=== PATIENT | female | born 1935 | race Two or more races ===

== ENCOUNTER 2023-03-25 19:56 | Emergency (ER) | payer OTHER ==
[~2023-03-25] VITALS: Ht 154.9 cm; Wt 46.3 kg
[2023-03-25] MEDS ORDERED: LIPITOR20 MG PO (20:07)
[2023-03-25] MEDS ORDERED: VASOTEC20 M1 PO (20:07)
[2023-03-25] MEDS ORDERED: MOBIC7.5 MG PO (23:46)
[2023-03-25] MEDS ORDERED: HYDROCHLOROTH12.5 MG PO (23:46)
[2023-03-25] MEDS ORDERED: METOPROLOL SUCC25 MG PO (23:46)
[2023-03-25] MEDS ORDERED: LOSARTAN POTAS100 MG PO (23:46)
[2023-03-25] MEDS ORDERED: ZANAFLEX2 M1 PO (23:46)
== END 2023-03-25 23:56 | disposition home or self-care (01) ==
LOC: ER 19:57
DX: I10 Essential (primary) hypertension (principal); Z88.0 Allergy status to penicillin; E78.00 Pure hypercholesterolemia, unspecified; M54.2 Cervicalgia